=== PATIENT | female | born 1985 | race African-American/Black ===

== ENCOUNTER 2016-09-30 14:46 | Emergency (ER) | payer MEDICAID ==
[~2016-09-30] VITALS: Ht 167.6 cm; Wt 65.9 kg
[2016-09-30 14:48] VITALS: BP 130/92; PULSE 105; RESP 18; TEMP 97.8; O2SAT 100
== END 2016-09-30 16:30 | disposition left against medical advice (07) ==
LOC: NED 14:46
DX: Z53.21 Procedure and treatment not carried out due to patient leaving prior to being seen by health care provider (principal)
CPT/HCPCS: 99281

== ENCOUNTER 2016-12-24 14:56 | Emergency (ER) | payer MEDICAID, OTHER ==
[~2016-12-24] VITALS: Ht 167.6 cm; Wt 60.0 kg
[2016-12-24 15:10] VITALS: BP 149/99; PULSE 98; RESP 16; TEMP 98; O2SAT 98
--- NOTE | 2016-12-24 15:26 | PD ---
HPI Chief Complaint: Psychiatric Symptoms Time Seen by Provider: 15:24 Travel History International Travel<30 days: No Contact w/Intl Traveler<30days: No Traveled to known affect area: No History of Present Illness HPI Patient comes in under Robb act by police for allegedly making suicidal statements. Patient denies any suicidal or homicidal ideation. Patient denies any medical concerns at this time. Denies any chest pain, shortness of breath, fevers, abdominal pain, nausea, vomiting, or urinary symptoms. PFSH Past Medical History Anemia: Yes Arthritis: No Asthma: No Autoimmune Disease: No Blood Disorders: No Anxiety: Yes Depression: Yes Heart Rhythm Problems: No Cancer: No Cardiovascular Problems: No High Cholesterol: No Chemotherapy: No Chest Pain: No Congestive Heart Failure: No COPD: No Diabetes: No Diminished Hearing: No Endocrine: No GERD: No Glaucoma: No Genitourinary: No Hepatitis: No Hiatal Hernia: No Hypertension: No Kidney Stones: No Musculoskeletal: No Neurologic: No Respiratory: No Immunizations Current: Yes Myocardial Infarction: No Radiation Therapy: No Renal Failure: No Sickle Cell Disease: No Sleep Apnea: No Thyroid Disease: Yes (PT STATES " THINK HYPO") Ulcer: No ?: Not LMP: LAST WEEK : 3 Para: 1 Miscarriage: 0 : 2 Ovarian Cysts: Yes Past Surgical History AICD: No Appendectomy: Yes Gynecologic Surgery: Yes (RIGHT OOPHRECTOMY) Hysterectomy: Yes (Partial; RIGHT OVARY REMOVED) Pacemaker: No Tonsillectomy: Yes Other Surgery: No Social History Alcohol Use: No Tobacco Use: Yes (11/09 PPD) Substance Use: No (DENIES ) Allergies-Medications (Allergen,Severity, Reaction): Coded Allergies: Citric Acid (Verified Allergy, Severe, TONGUE IRRITATION, 12/24/16) Penicillin (Verified Allergy, Severe, Hives, 12/24/16) Morphine (Verified Allergy, Mild, ITCHES, 12/24/16) Demerol (Verified Adverse Reaction, Mild, STS DOES NOT WORK, 12/24/16) Reported Meds & Prescriptions Reported Meds & Active Scripts Active No Active Prescriptions or Reported Medications Review of Systems Except as stated in HPI: all other systems reviewed are Neg Physical Exam Narrative GENERAL: Well-developed, well nourished, in no acute distress, and non-ill appearing. Tearful on exam. SKIN: Focused skin assessment warm and dry. HEAD: Atraumatic. Normocephalic. EYES: Pupils equal and round. EOMI. No scleral icterus. No injection or drainage. ENT: No nasal bleeding or discharge. Mucous membranes pink and moist. NECK: Trachea midline. Supple. No nuclear rigidity. CARDIOVASCULAR: Regular rate and rhythm. No murmur appreciated. RESPIRATORY: No accessory muscle use. No respiratory distress. Clear to auscultation. Breath sounds equal bilaterally. MUSCULOSKELETAL: No obvious deformities. No clubbing. No cyanosis. No edema. Full range of motion. NEUROLOGICAL: Awake and alert. No obvious cranial nerve deficits. Motor grossly within normal limits. Normal speech. PSYCHIATRIC: Appropriate mood and affect; insight and judgment normal. Data Data Last Documented VS Vital Signs Date Time Temp Pulse Resp B/P Pulse Ox O2 Delivery O2 Flow Rate FiO2 12/24/16 17:19 97.8 78 18 92/54 98 Room Air Orders Complete Blood Count With Diff (12/24/16 15:23) Comprehensive Metabolic Panel (12/24/16 15:23) Ed Urine Pregnancytest Poc (12/24/16 15:23) Psych Screen (12/24/16 15:23) Drug Screen, Random Urine (12/24/16 15:23) Alcohol (Ethanol) (12/24/16 15:23) Salicylates (Aspirin) (12/24/16 15:23) Tylenol (Acetaminophen) (12/24/16 15:23) Diet Regular Basic (12/24/16 Dinner) Labs Laboratory Tests Test 12/24/16 12/24/16 15:35 16:12 Urine Opiates Screen POS Urine Barbiturates Screen NEG Urine Amphetamines Screen NEG Urine Benzodiazepines Screen NEG Urine Cocaine Screen POS Urine Cannabinoids Screen POS White Blood Count 10.3 TH/MM3 Red Blood Count 4.95 MIL/MM3 Hemoglobin 12.7 GM/DL Hematocrit 38.3 % Mean Corpuscular Volume 77.5 FL Mean Corpuscular Hemoglobin 25.6 PG Mean Corpuscular Hemoglobin 33.0 % Concent Red Cell Distribution Width 15.7 % Platelet Count 339 TH/MM3 Mean Platelet Volume 7.5 FL Neutrophils (%) (Auto) 64.5 % Lymphocytes (%) (Auto) 26.2 % Monocytes (%) (Auto) 6.0 % Eosinophils (%) (Auto) 2.1 % Basophils (%) (Auto) 1.2 % Neutrophils # (Auto) 6.6 TH/MM3 Lymphocytes # (Auto) 2.7 TH/MM3 Monocytes # (Auto) 0.6 TH/MM3 Eosinophils # (Auto) 0.2 TH/MM3 Basophils # (Auto) 0.1 TH/MM3 CBC Comment DIFF FINAL Differential Comment Sodium Level 142 MEQ/L Potassium Level 3.9 MEQ/L Chloride Level 108 MEQ/L Carbon Dioxide Level 28.1 MEQ/L Anion Gap 6 MEQ/L Blood Urea Nitrogen 10 MG/DL Creatinine 0.91 MG/DL Estimat Glomerular Filtration 86 ML/MIN Rate Random Glucose 56 MG/DL Calcium Level 9.2 MG/DL Total Bilirubin 0.2 MG/DL Aspartate Amino Transf 15 U/L (AST/SGOT) Alanine Aminotransferase 16 U/L (ALT/SGPT) Alkaline Phosphatase 76 U/L Total Protein 8.2 GM/DL Albumin 3.8 GM/DL Salicylates Level 4.0 MG/DL Acetaminophen Level LESS THAN 2.0 MCG/ML Ethyl Alcohol Level LESS THAN 3 MG/DL MDM Medical Decision Making Medical Screen Exam Complete: Yes Emergency Medical Condition: Yes Differential Diagnosis Homicidal, suicidal, electrolyte abnormality, other Narrative Course Patient was seen and examined. Labs were obtained and reviewed. Patient medically cleared for further treatment and evaluation by psych. Final disposition per psych. Diagnosis Primary Impression: Medical clearance for psychiatric admission Scripts No Active Prescriptions or Reported Meds Condition: Stable Rony Stephenson Dec 24, 2016 15:26
[2016-12-24 16:07] LABS: AMPHETAMINE, URINE NEG (NEG); BARBITURATES, URINE NEG (NEG); COCAINE, URINE POS (NEG)
[2016-12-24 16:56] LABS: AUTOMATED NEUTROPHIL # 6.6 TH/MM3 (1.8-7.7); BASOPHIL # 0.1 TH/MM3 (0-0.2); BASOPHIL % 1.2 % (0.0-2.0); EOSINOPHIL # 0.2 TH/MM3 (0-0.4); EOSINOPHIL % 2.1 % (0.0-4.0); HEMATOCRIT 38.3 % (35.0-46.0); HEMO FLAGS DIFF FINAL; LYMPH % 26.2 % (9.0-44.0); LYMPHOCYTE # 2.7 TH/MM3 (1.0-4.8); MEAN CELL VOLUME 77.5 FL (80.0-100.0); MEAN CORPUSCULAR HEMOGLOBIN 25.6 PG (27.0-34.0); NEUT % 64.5 % (16.0-70.0); PLATELET COUNT 339 TH/MM3 (150-450); RED BLOOD COUNT 4.95 MIL/MM3 (4.00-5.30); RED CELL DISTRIBUTION WIDTH 15.7 % (11.6-17.2); WHITE BLOOD COUNT 10.3 TH/MM3 (4.0-11.0)
[2016-12-24 17:19] VITALS: BP 92/54; PULSE 78; RESP 18; TEMP 97.8; O2SAT 98
[2016-12-24 17:25] LABS: ALT (GPT) 16 U/L (10-53); ANION GAP 6 MEQ/L (5-15); AST (GOT) 15 U/L (15-37); BICARBONATE 28.1 MEQ/L (21.0-32.0); BLOOD UREA NITROGEN 10 MG/DL (7-18); CHLORIDE 108 MEQ/L (98-107); GLOMERULAR FILTRATION RATE 86 ML/MIN (>89); POTASSIUM 3.9 MEQ/L (3.5-5.1); SODIUM (NA) 142 MEQ/L (136-145)
[2016-12-24 17:27] LABS: ALKALINE PHOSPHATASE 76 U/L (45-117); TOTAL BILIRUBIN ADULT 0.2 MG/DL (0.2-1.0)
[2016-12-24 17:28] LABS: ACETAMINOPHEN LESS THAN 2.0 MCG/ML (10.0-30.0)
[2016-12-24 23:10] VITALS: BP 136/64; PULSE 77; RESP 17; O2SAT 96
[2016-12-25 02:00] VITALS: BP 102/58; PULSE 80; RESP 17; O2SAT 99
[2016-12-25 06:47] VITALS: BP 113/67; PULSE 79; RESP 17; O2SAT 97
--- NOTE | 2016-12-25 10:21 | PD ---
History of Present Illness Chief Complaint: Psychiatric Symptoms Time Seen by Provider: 09:55 Travel History International Travel<30 Days: No Contact w/Intl Traveler<30days: No Known affected area: No Legal Status Legal Status: Robb Act Robb Act Signed By: William Caldwell Robb Act Comment: BA signed by:VASYL MCCLAIN Badge#[id number], Case#[id number] History of Present Illness: History of Present Illness HPI Patient is a 31 year old female with no reported history of psychiatric illness who comes in under Robb act initiated by by police. As per the report she made suicidal statements and she stated that she was on medication fro mental illness". As per Ed documentation included in this report " Patient denies any suicidal or homicidal ideation." Patient was monitored here in J pod and she presented no behavioral concerns and no suicidality. EMR is reviewed. She was evaluated on January 2016 after she presented on a voluntary basis. She was referred to [facility] but did not follow up. Patient's current toxicology is positive for cocaine, cannabinoids as well as opiates w. She states that the opiates are prescribed for pain management of migraines. She admits to having smoked marijuana that she believes was possibly laced with cocaine . Patient denies any medical concerns at this time. Denies any chest pain, shortness of breath, fevers, abdominal pain, nausea, vomiting, or urinary symptoms. Patient is seen in J pod. Awake, alert, oriented and engaging. Speech is clear and logical. There is no indication that she is experiencing any hallucinations , no delusions and no paranoia. The patient at this time denies any significant symptom of depression or anxiety and states that she has not had treatment in several years. She is prescribed Trazodone by her pain management for sleep. She denies any social ideation, intent or plan. The Patient reports that she was involved in an argument with her mother over not having food in the home. She goes on to say that she told her mother " I won't be around much longer to burden you" because she is planning on moving out of her mother's house and in with a friend. She tells me that she is planning to move w with her son to a friend's house as she has frequent arguments with her mother. PFSH Past Medical History Anemia: Yes Arthritis: No Asthma: No Autoimmune Disease: No Blood Disorders: No Anxiety: Yes Depression: Yes Heart Rhythm Problems: No Cancer: No Cardiovascular Problems: No High Cholesterol: No Chemotherapy: No Chest Pain: No Congestive Heart Failure: No COPD: No Diabetes: No Diminished Hearing: No Endocrine: No GERD: No Glaucoma: No Genitourinary: No Hepatitis: No Hiatal Hernia: No Hypertension: No Kidney Stones: No Musculoskeletal: No Neurologic: No Respiratory: No Immunizations Current: Yes Myocardial Infarction: No Radiation Therapy: No Renal Failure: No Sickle Cell Disease: No Sleep Apnea: No Thyroid Disease: Yes (PT STATES " THINK HYPO") Ulcer: No ?: Not LMP: LAST WEEK : 3 Para: 1 Miscarriage: 0 : 2 Ovarian Cysts: Yes Past Surgical History AICD: No Appendectomy: Yes Gynecologic Surgery: Yes (RIGHT OOPHRECTOMY) Hysterectomy: Yes (Partial; RIGHT OVARY REMOVED) Pacemaker: No Tonsillectomy: Yes Other Surgery: No Psychiatric History Psychiatric History Hx Psychiatric Treatment: Presented to [facility] volutarily in 2016, denies prior hx. Was followed at [facility] for a brief time 5 years ago. History of Inpatient Treatment: No Guns or firearms in home: No Social History Single , mother of a 9 year old. Lives with her mother and her child. Unemployed at this time. 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 Hx Alcohol Use: No Hx Tobacco Use: Yes (3/4 PPD) Hx Substance Use: No (Marijauna, Diladid and Crack) Substance Use Type: Crack, Marijuana, Synth Opiates-Pain Pills Other Substances Used: PT DENIES PSA. PER LAST SCREENING THERE IS A HISTORY OF PSA Hx of Substance Use Treatment: No Family Psychiatric History None reported Allergies-Medications (Allergen,Severity, Reaction): Coded Allergies: Citric Acid (Verified Allergy, Severe, TONGUE IRRITATION, 12/24/16) Penicillin (Verified Allergy, Severe, Hives, 12/24/16) Morphine (Verified Allergy, Mild, ITCHES, 12/24/16) Demerol (Verified Adverse Reaction, Mild, STS DOES NOT WORK, 12/24/16) Reported Meds & Prescriptions Reported Meds & Active Scripts Active No Active Prescriptions or Reported Medications Review of Systems Constitutional: DENIES: Diaphoretic episodes, Fatigue, Fever, Weight gain, Weight loss, Chills, Dizziness, Change in appetite, Night Sweats Endocrine: DENIES: Abnorml menstrual pattern, Heat/cold intolerance, Polydipsia , Polyuria, Polyphagia Eyes: DENIES: Blurred vision, Diplopia, Eye inflammation, Eye pain, Vision loss , Photosensitivity, Double Vision Ears, nose, mouth, throat: DENIES: Tinnitus, Hearing loss, Vertigo, Nasal discharge, Oral lesions, Throat pain, Hoarseness, Ear Pain, Running Nose, Epistaxis, Sinus Pain, Toothache, Odynophagia Respiratory: DENIES: Apneas, Cough, Snoring, Wheezing, Hemoptysis, Sputum production, Shortness of breath Cardiovascular: DENIES: Chest pain, Palpitations, Syncope, Dyspnea on Exertion , PND, Lower Extremity Edema, Orthopnea, Claudication Gastrointestinal: DENIES: Abdominal pain, Black stools, Bloody stools, Constipation, Diarrhea, Nausea, Vomiting, Difficulty Swallowing, Anorexia Genitourinary: DENIES: Abnormal vaginal bleeding, Dysmenorrhea, Dyspareunia, Sexual dysfunction, Urinary frequency, Urinary incontinence, Urgency, Hematuria , Dysuria, Nocturia, Vaginal discharge Musculoskeletal: DENIES: Joint pain, Muscle aches, Stiffness, Joint Swelling, Back pain, Neck pain Integumentary: DENIES: Abnormal pigmentation, Pruritus, Rash, Nail changes, Breast masses, Breast skin changes, Nipple discharge Hematologic/lymphatic: DENIES: Bruising, Lymphadenopathy Neurologic: COMPLAINS OF: Headache (hx of migraines) Psychiatric: DENIES: Anxiety, Confusion, Mood changes, Depression, Hallucinations, Agitation, Suicidal Ideation, Homicidal Ideation, Delusions Exam Alert: Yes [place]: Person (ox4) Mood: Calm Affect: Appropriate Speech: Clear, Logical Eye Contact: Normal Memory Intact: Comment (not impaired) Hallucinations: Other (deneis any) Delusions: No Suicidal: Ideation (denies any) Homicidal: Ideation (denies any) Insight/Judgement Poor. Not impaired. MDM Medical Decision Making Medical Record Reviewed: Yes Assessment/Plan 31 year old female under a BA after she allegedly made suicidal ideation in context of having an argument with her mother. Patient also under the influence of several substances at the time of the BA. The patient has been monitored here in J pod and has presented no behavioral concerns and no suicidality. She at this time is future oriented and does not present any criteria to retain her under the BA. She agrees to follow up with [facility]. She also has plans to move out of her mother's house and with a friend. Orders Complete Blood Count With Diff (12/24/16 15:23) Comprehensive Metabolic Panel (12/24/16 15:23) Ed Urine Pregnancytest Poc (12/24/16 15:23) Psych Screen (12/24/16 15:23) Drug Screen, Random Urine (12/24/16 15:23) Alcohol (Ethanol) (12/24/16 15:23) Salicylates (Aspirin) (12/24/16 15:23) Tylenol (Acetaminophen) (12/24/16 15:23) Diet Regular Basic (12/24/16 Dinner) Diet Regular Basic (12/25/16 Breakfast) Diet Regular Basic (12/25/16 Lunch) Results Vital Signs Date Time Temp Pulse Resp B/P Pulse Ox O2 Delivery O2 Flow Rate FiO2 12/25/16 06:47 79 17 113/67 97 Room Air 12/25/16 02:00 80 17 102/58 99 Room Air 12/24/16 23:10 77 17 136/64 96 Room Air 12/24/16 17:19 97.8 78 18 92/54 98 Room Air 12/24/16 15:10 98.0 98 16 149/99 98 Laboratory Tests Test 12/24/16 12/24/16 15:35 16:12 Urine Opiates Screen POS Urine Barbiturates Screen NEG Urine Amphetamines Screen NEG Urine Benzodiazepines Screen NEG Urine Cocaine Screen POS Urine Cannabinoids Screen POS White Blood Count 10.3 Red Blood Count 4.95 Hemoglobin 12.7 Hematocrit 38.3 Mean Corpuscular Volume 77.5 Mean Corpuscular Hemoglobin 25.6 Mean Corpuscular Hemoglobin 33.0 Concent Red Cell Distribution Width 15.7 Platelet Count 339 Mean Platelet Volume 7.5 Neutrophils (%) (Auto) 64.5 Lymphocytes (%) (Auto) 26.2 Monocytes (%) (Auto) 6.0 Eosinophils (%) (Auto) 2.1 Basophils (%) (Auto) 1.2 Neutrophils # (Auto) 6.6 Lymphocytes # (Auto) 2.7 Monocytes # (Auto) 0.6 Eosinophils # (Auto) 0.2 Basophils # (Auto) 0.1 CBC Comment DIFF FINAL Differential Comment Sodium Level 142 Potassium Level 3.9 Chloride Level 108 Carbon Dioxide Level 28.1 Anion Gap 6 Blood Urea Nitrogen 10 Creatinine 0.91 Estimat Glomerular Filtration 86 Rate Random Glucose 56 Calcium Level 9.2 Total Bilirubin 0.2 Aspartate Amino Transf 15 (AST/SGOT) Alanine Aminotransferase 16 (ALT/SGPT) Alkaline Phosphatase 76 Total Protein 8.2 Albumin 3.8 Salicylates Level 4.0 Acetaminophen Level LESS THAN 2.0 Ethyl Alcohol Level LESS THAN 3 Diagnosis Primary Impression: Substance induced mood disorder Additional Impression: Substance use disorder Med/ Other Pt Specific Info: No Change to Meds, No Meds Exist/No RX given Prescriptions No Active Prescriptions or Reported Meds Disposition: 01 DISCHARGE HOME Condition: Stable Problem Qualifiers Barbie Dudley Dec 25, 2016 10:21
[2016-12-25 10:24] VITALS: BP 113/83; PULSE 80; RESP 18; O2SAT 97
[2016-12-26] MEDS ORDERED: PERI0.126 SWISH-SPIT (16:49)
[2016-12-26] MEDS ORDERED: CLIN1CAP5 PO (16:49)
== END 2016-12-25 11:29 | disposition home or self-care (01) ==
LOC: NEDAMB 14:56 → NEPJ 12-25 11:29
DX: F19.94 Other psychoactive substance use, unspecified with psychoactive substance-induced mood disorder (principal); E07.9 Disorder of thyroid, unspecified; F17.200 Nicotine dependence, unspecified, uncomplicated; Z02.89 Encounter for other administrative examinations; Z86.2 Personal history of diseases of the blood and blood-forming organs and certain disorders involving the immune mechanism; Z86.59 Personal history of other mental and behavioral disorders
CPT/HCPCS: 80053; 80307; 84703; 85025; 99285

== ENCOUNTER 2016-12-26 16:12 | Emergency (ER) | payer MEDICAID, OTHER ==
[~2016-12-26] VITALS: Ht 167.6 cm; Wt 55.0 kg
[2016-12-26 16:46] VITALS: BP 141/95; PULSE 104; RESP 16; TEMP 97.1; O2SAT 98
[2016-12-26] MEDS ORDERED: CLIN1CAP5 PO (16:49)
[2016-12-26] MEDS ORDERED: PERI0.126 SWISH-SPIT (16:49)
--- NOTE | 2016-12-26 16:49 | PD ---
HPI Chief Complaint: Oral / Dental Pain or Problem Time Seen by Provider: 16:46 Travel History International Travel<30 days: No Contact w/Intl Traveler<30days: No Traveled to known affect area: No History of Present Illness HPI 31-year-old female presents to emergency department for evaluation and medical clearance to return [facility]. Patient is an exparte for substance abuse. She has been having tooth pain and states she has a dental abscess. [facility] like her medically cleared prior to them accepting her back to their facility. Patient is very upset that she is having to be there anyway. She does not share with me much but states she does have a dental abscess involving her right lateral incisor. Denies fever or chills. States that it has been worsening for very long time. Denies any other symptoms at this time. PFSH Past Medical History Anemia: Yes Arthritis: No Asthma: No Autoimmune Disease: No Blood Disorders: No Anxiety: Yes Depression: Yes Heart Rhythm Problems: No Cancer: No Cardiovascular Problems: No High Cholesterol: No Chemotherapy: No Chest Pain: No Congestive Heart Failure: No COPD: No Diabetes: No Diminished Hearing: No Endocrine: No GERD: No Glaucoma: No Genitourinary: No Hepatitis: No Hiatal Hernia: No Hypertension: No Kidney Stones: No Musculoskeletal: No Neurologic: No Respiratory: No Immunizations Current: Yes Myocardial Infarction: No Radiation Therapy: No Renal Failure: No Sickle Cell Disease: No Sleep Apnea: No Thyroid Disease: Yes (PT STATES " THINK HYPO") Ulcer: No : 3 Para: 1 Miscarriage: 0 : 2 Ovarian Cysts: Yes Past Surgical History AICD: No Appendectomy: Yes Gynecologic Surgery: Yes (RIGHT OOPHRECTOMY) Hysterectomy: Yes (Partial; RIGHT OVARY REMOVED) Pacemaker: No Tonsillectomy: Yes Other Surgery: No Social History Alcohol Use: No Tobacco Use: Yes (11/09 PPD) Substance Use: No (Marijauna, Diladid and Crack) Allergies-Medications (Allergen,Severity, Reaction): Coded Allergies: Citric Acid (Verified Allergy, Severe, TONGUE IRRITATION, 12/24/16) Penicillin (Verified Allergy, Severe, Hives, 12/24/16) Morphine (Verified Allergy, Mild, ITCHES, 12/24/16) Demerol (Verified Adverse Reaction, Mild, STS DOES NOT WORK, 4/18/17) Reported Meds & Prescriptions Reported Meds & Active Scripts Active Peridex Liq (Chlorhexidine Gluconate (Mouth) Liq) 0.12% Soln 15 Ml SWISH-SPIT BID 14 Days Clindamycin (Clindamycin HCl) 150 Mg Cap 300 Mg PO Q6H 10 Days Review of Systems Except as stated in HPI: all other systems reviewed are Neg Physical Exam Narrative GENERAL: Well-nourished female patient, tearful, easily agitated, but in no acute distress SKIN: Focused skin assessment warm/dry. HEAD: Atraumatic. Normocephalic. No erythema or edema. EYES: Pupils equal and round. No scleral icterus. No injection or drainage. ENT: No nasal bleeding or discharge. Mucous membranes pink and moist. DENTAL: Generalized poor dentition. The right maxillary lateral incisor and the right maxillary first bicuspid arc decayed completely down to the gingiva. There is significant gingival erythema with no appreciable abscess. There is no fluctuance. There is no drainage identified. No malocclusion. NECK: Trachea midline. No JVD. No lymphadenopathy identified. CARDIOVASCULAR: Elevated rate and rhythm. No murmur appreciated. RESPIRATORY: No accessory muscle use. Clear to auscultation. Breath sounds equal bilaterally. GASTROINTESTINAL: Abdomen soft, non-tender, nondistended. Hepatic and splenic margins not palpable. MUSCULOSKELETAL: No obvious deformities. No clubbing. No cyanosis. No edema. Data Data Last Documented VS Vital Signs Date Time Temp Pulse Resp B/P Pulse Ox O2 Delivery O2 Flow Rate FiO2 12/26/16 16:46 97.1 104 16 141/95 98 Orders Clindamycin (Cleocin) (12/26/16 17:00) Ibuprofen (Motrin) (12/26/16 17:00) [facility] Medical Decision Making Medical Screen Exam Complete: Yes Emergency Medical Condition: Yes Medical Record Reviewed: Yes Differential Diagnosis Dental Jessy versus dental abscess versus gingivitis versus pulpitis versus periodontal disease Narrative Course 31-year-old female presents to emergency department for medical clearance of a possible dental abscess to return to [facility]. Patient does have poor dentition and significantly decayed teeth in the area of her pain. She'll be started on clindamycin and she is allergic to penicillin and also be prescribed Peridex oral rinse. She is encouraged to seek dental evaluation as soon as possible. She agrees to return immediately with any acute worsening of symptoms. Diagnosis Primary Impression: Dental caries extending into pulp Additional Impressions: Gingivitis Medical clearance for psychiatric admission Substance use disorder Referrals: [facility] Patient Instructions: Dental Caries (ED), General Instructions Additional Instructions: Seek dental evaluation as soon as possible Take antibiotics until they are gone Ibuprofen as directed on the package as needed for pain Return immediately with any acute worsening of symptoms Med/Other Pt SpecificInfo: Prescription(s) given Scripts Chlorhexidine Gluconate (Mouth) Liq (Peridex Liq)0.12% Soln15 Ml SWISH-SPIT BID 14 Days Ref 0 Prov:Leticia Butterfield 12/26/16 Clindamycin 150 Mg [id number] Mg PO Q6H 10 Days Ref 0 Prov:Leticia Butterfield 12/26/16 Disposition: 01 DISCHARGE HOME Condition: Stable Leticia Butterfield Dec 26, 2016 16:49
[2016-12-26] MEDS ORDERED: CLINDAMYCIN 150 MG CAP PO ONE (17:00)
[2016-12-26] MEDS ORDERED: IBUPROFEN 600 MG TAB PO ONE (17:00)
== END 2016-12-26 17:22 | disposition home or self-care (01) ==
LOC: NEDAMB 16:12
DX: K02.9 Dental caries, unspecified (principal); K05.10 Chronic gingivitis, plaque induced; F19.10 Other psychoactive substance abuse, uncomplicated; F17.210 Nicotine dependence, cigarettes, uncomplicated
CPT/HCPCS: 99282

== ENCOUNTER 2017-01-23 04:26 | Emergency (ER) | payer MEDICAID, OTHER ==
[~2017-01-23 04:26] MED LIST: CLIN1CAP5 PO; PERI0.126 SWISH-SPIT
[2017-01-23 04:34] VITALS: BP 101/61; PULSE 82; RESP 16
--- NOTE | 2017-01-23 05:10 | PD ---
HPI Chief Complaint: Pain: Acute or Chronic Time Seen by Provider: 05:07 Travel History International Travel<30 days: No Contact w/Intl Traveler<30days: No Traveled to known affect area: No History of Present Illness HPI 31-year-old female with history of opiate dependency, currently under court ordered detox, presents to emergency department from [facility] for evaluation of arm and back pain and dental pain. Prior to arrival, patient had received 2 doses of Ativan, clonidine, and Benadryl. She is resting comfortably in the bed with her eyes closed. She is arousable. She is oriented 3. She is not mentioning any pain at this time. PFSH Past Medical History Anemia: Yes Arthritis: No Asthma: No Autoimmune Disease: No Blood Disorders: No Anxiety: Yes Depression: Yes Heart Rhythm Problems: No Cancer: No Cardiovascular Problems: No High Cholesterol: No Chemotherapy: No Chest Pain: No Congestive Heart Failure: No COPD: No Diabetes: No Diminished Hearing: No Endocrine: No GERD: No Glaucoma: No Genitourinary: No Hepatitis: No Hiatal Hernia: No Hypertension: No Kidney Stones: No Musculoskeletal: No Neurologic: No Respiratory: No Immunizations Current: Yes Myocardial Infarction: No Radiation Therapy: No Renal Failure: No Sickle Cell Disease: No Sleep Apnea: No Thyroid Disease: Yes (PT STATES " THINK HYPO") Ulcer: No ?: Unknown : 3 Para: 1 Miscarriage: 0 : 2 Ovarian Cysts: Yes Past Surgical History AICD: No Appendectomy: Yes Gynecologic Surgery: Yes (RIGHT OOPHRECTOMY) Hysterectomy: Yes (Partial; RIGHT OVARY REMOVED) Pacemaker: No Tonsillectomy: Yes Other Surgery: No Social History Alcohol Use: No Tobacco Use: Yes (3/4 PPD) Substance Use: Yes (Marijauna, Diladid and Crack) Allergies-Medications (Allergen,Severity, Reaction): Coded Allergies: Citric Acid (Verified Allergy, Severe, TONGUE IRRITATION, 01/23/17) Penicillin (Verified Allergy, Severe, Hives, 01/23/17) Morphine (Verified Allergy, Mild, ITCHES, 01/23/17) Demerol (Verified Adverse Reaction, Mild, STS DOES NOT WORK, 01/23/17) Reported Meds & Prescriptions Reported Meds & Active Scripts Active Peridex Liq (Chlorhexidine Gluconate (Mouth) Liq) 0.12% Soln 15 Ml SWISH-SPIT BID 14 Days Clindamycin (Clindamycin HCl) 150 Mg Cap 300 Mg PO Q6H 10 Days Review of Systems Except as stated in HPI: all other systems reviewed are Neg Physical Exam Narrative GENERAL: Well-nourished female patient, in no acute distress. Patient is resting comfortably in the bed with her eyes closed. She is arousable, however she grinds or moans and turns back over to go to sleep after answering simple questions. Patient has recently been medicated for detox symptoms at [facility]. SKIN: Focused skin assessment warm/dry. HEAD: Atraumatic. Normocephalic. EYES: Pupils equal and round. No scleral icterus. No injection or drainage. ENT: No nasal bleeding or discharge. Mucous membranes pink and moist. NECK: Trachea midline. No JVD. CARDIOVASCULAR: Regular rate and rhythm. No murmur appreciated. RESPIRATORY: No accessory muscle use. Clear to auscultation. Breath sounds equal bilaterally. GASTROINTESTINAL: Abdomen soft, non-tender, nondistended. Hepatic and splenic margins not palpable. MUSCULOSKELETAL: No obvious deformities. No clubbing. No cyanosis. No edema. NEUROLOGICAL: Awake and alert. No obvious cranial nerve deficits. Motor grossly within normal limits. Normal speech. Data Data Last Documented VS Vital Signs Date Time Temp Pulse Resp B/P Pulse Ox O2 Delivery O2 Flow Rate FiO2 01/23/17 04:34 82 16 101/61 [facility] Medical Decision Making Medical Screen Exam Complete: Yes Emergency Medical Condition: Yes Medical Record Reviewed: Yes Differential Diagnosis Normal examination versus narcotic seeking versus muscle pain versus spasm Narrative Course 31 year-old female presents to the emergency department for evaluation of arm, neck, and mouth pain. Patient was recently medicated at the [facility] facility for her detox symptoms. She is resting comfortably with her eyes closed. She is arousable. Patient is not reporting any pain at this time. Patient is medically cleared to return to [facility]. If her pains return , I recommended Tylenol and/or ibuprofen. The catheter member with her agrees to return immediately for any acute worsening symptoms. Patient ambulates out of our facility into the [facility] vehicle for transfer back. Diagnosis Primary Impression: History of substance abuse Additional Impression: Medical clearance for psychiatric admission Referrals: [facility] (Out patient) [facility] Patient Instructions: General Instructions, Medical Clearance for Substance Abuse Treatment (ED) Additional Instructions: Tylenol and/or ibuprofen as directed on the package as needed for pain Follow-up with the primary care provider Return immediately with any acute worsening of symptoms Med/Other Pt SpecificInfo: No Change to Meds Disposition: 70 TRANSFER TO OTHER FACILITY Condition: Stable Lteicia Butterfield January 23, 2017 05:10
== END 2017-01-23 05:32 | disposition short-term general hospital (02) ==
LOC: NEPD 04:26
DX: Z02.89 Encounter for other administrative examinations (principal); E07.9 Disorder of thyroid, unspecified; F17.200 Nicotine dependence, unspecified, uncomplicated; Z87.898 Personal history of other specified conditions; Z86.2 Personal history of diseases of the blood and blood-forming organs and certain disorders involving the immune mechanism; Z86.59 Personal history of other mental and behavioral disorders
CPT/HCPCS: 99283

== ENCOUNTER 2017-03-24 15:00 | Emergency (ER) | payer MEDICAID ==
[~2017-03-24] VITALS: Ht 167.6 cm; Wt 62.0 kg
[2017-03-24 15:02] VITALS: BP 124/75; PULSE 98; RESP 16; TEMP 98.4; O2SAT 98
[2017-03-24 15:57] VITALS: BP 115/82; PULSE 85; RESP 16; O2SAT 100
[2017-03-24 16:23] LABS: BASOPHIL # 0.1 TH/MM3 (0-0.2); EOSINOPHIL # 0.2 TH/MM3 (0-0.4); EOSINOPHIL % 1.8 % (0.0-4.0); HEMATOCRIT 36.8 % (35.0-46.0); HEMO FLAGS DIFF FINAL; LYMPH % 30.7 % (9.0-44.0); LYMPHOCYTE # 2.6 TH/MM3 (1.0-4.8); MEAN CELL VOLUME 79.4 FL (80.0-100.0); MEAN CORPUSCULAR HEMOGLOBIN 25.4 PG (27.0-34.0); MONO % 6.3 % (0.0-8.0); NEUT % 60.2 % (16.0-70.0); PLATELET COUNT 314 TH/MM3 (150-450); RED BLOOD COUNT 4.64 MIL/MM3 (4.00-5.30); RED CELL DISTRIBUTION WIDTH 14.5 % (11.6-17.2); WHITE BLOOD COUNT 8.3 TH/MM3 (4.0-11.0)
[2017-03-24 16:48] LABS: BICARBONATE 26.7 MEQ/L (21.0-32.0); POTASSIUM 3.9 MEQ/L (3.5-5.1)
--- NOTE | 2017-03-24 16:58 | PD ---
HPI Chief Complaint: Syncope/Near-Syncope Time Seen by Provider: 16:53 Travel History International Travel<30 days: No Contact w/Intl Traveler<30days: No Traveled to known affect area: No History of Present Illness HPI 31 -year-old female that presents to the ED for evaluation of presyncope. Per patient she had an episode of almost syncope where she states that she almost fainted when she was at work. Per patient she felt lightheaded. She did not completely lost consciousness. Per patient she's had this before and this was attributed to low blood sugar. Per patient she checks her sugar regularly at home. The patient is not the first time that this happened. 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 She denies any head injury. She denies any pain. She denies any fevers chills or sweats. No chest pain or shortness of breath. Allergies to multiple medications. Denies any drug abuse. No alcohol. She had this time is completely asymptomatic. PFSH Past Medical History Anemia: Yes Arthritis: No Asthma: No Autoimmune Disease: No Blood Disorders: No Anxiety: Yes Depression: Yes Heart Rhythm Problems: No Cancer: No Cardiovascular Problems: No High Cholesterol: No Chemotherapy: No Chest Pain: No Congestive Heart Failure: No COPD: No Diabetes: No Diminished Hearing: No Endocrine: No GERD: No Glaucoma: No Genitourinary: No Hepatitis: No Hiatal Hernia: No Hypertension: No Kidney Stones: No Musculoskeletal: No Neurologic: No Respiratory: No Immunizations Current: Yes Myocardial Infarction: No Radiation Therapy: No Renal Failure: No Sickle Cell Disease: No Sleep Apnea: No Thyroid Disease: Yes (PT STATES " THINK HYPO") Ulcer: No ?: Not LMP: 3 WEEKS AGO : 3 Para: 1 Miscarriage: 0 : 2 Ovarian Cysts: Yes Past Surgical History AICD: No Appendectomy: Yes Gynecologic Surgery: Yes (RIGHT OOPHRECTOMY) Hysterectomy: Yes (Partial; RIGHT OVARY REMOVED) Pacemaker: No Tonsillectomy: Yes Other Surgery: No Social History Alcohol Use: No Tobacco Use: Yes (11/09 PPD) Substance Use: Yes (Marijauna, Diladid and Crack) Allergies-Medications (Allergen,Severity, Reaction): Coded Allergies: Citric Acid (Verified Allergy, Severe, TONGUE IRRITATION, 03/24/17) Penicillin (Verified Allergy, Severe, Hives, 03/24/17) Morphine (Verified Allergy, Mild, ITCHES, 03/24/17) Demerol (Verified Adverse Reaction, Mild, STS DOES NOT WORK, 03/24/17) Reported Meds & Prescriptions Reported Meds & Active Scripts Active No Active Prescriptions or Reported Medications Review of Systems Except as stated in HPI: all other systems reviewed are Neg Physical Exam Narrative GENERAL: SKIN: Warm and dry. HEAD: Atraumatic. Normocephalic. EYES: Pupils equal and round. No scleral icterus. No injection or drainage. ENT: No nasal bleeding or discharge. Mucous membranes pink and moist. Tongue is midline. No uvula deviation. NECK: Trachea midline. No JVD. CARDIOVASCULAR: Regular rate and rhythm. No murmurs, S3, S4. RESPIRATORY: No accessory muscle use. Clear to auscultation. Breath sounds equal bilaterally. GASTROINTESTINAL: Abdomen soft, non-tender, nondistended. Hepatic and splenic margins not palpable. MUSCULOSKELETAL: Extremities without clubbing, cyanosis, or edema. No obvious deformities. Full range of motion of the upper and lower extremities bilaterally. 2+ pulses bilaterally. NEUROLOGICAL: Awake and alert. No obvious cranial nerve deficits. Motor grossly within normal limits. Five out of 5 muscle strength in the arms and legs. Normal speech. PSYCHIATRIC: Appropriate mood and affect; insight and judgment normal. Data Data Last Documented VS Vital Signs Date Time Temp Pulse Resp B/P Pulse Ox O2 Delivery O2 Flow Rate FiO2 03/24/17 15:57 85 16 115/82 100 Room Air 03/24/17 15:02 98.4 Orders Complete Blood Count With Diff (03/24/17 16:01) Basic Metabolic Panel (Bmp) (03/24/17 16:01) Labs Laboratory Tests Test 03/24/17 16:10 White Blood Count 8.3 TH/MM3 Red Blood Count 4.64 MIL/MM3 Hemoglobin 11.8 GM/DL Hematocrit 36.8 % Mean Corpuscular Volume 79.4 FL Mean Corpuscular Hemoglobin 25.4 PG Mean Corpuscular Hemoglobin 32.0 % Concent Red Cell Distribution Width 14.5 % Platelet Count 314 TH/MM3 Mean Platelet Volume 7.0 FL Neutrophils (%) (Auto) 60.2 % Lymphocytes (%) (Auto) 30.7 % Monocytes (%) (Auto) 6.3 % Eosinophils (%) (Auto) 1.8 % Basophils (%) (Auto) 1.0 % Neutrophils # (Auto) 5.0 TH/MM3 Lymphocytes # (Auto) 2.6 TH/MM3 Monocytes # (Auto) 0.5 TH/MM3 Eosinophils # (Auto) 0.2 TH/MM3 Basophils # (Auto) 0.1 TH/MM3 CBC Comment DIFF FINAL Differential Comment Sodium Level 141 MEQ/L Potassium Level 3.9 MEQ/L Chloride Level 107 MEQ/L Carbon Dioxide Level 26.7 MEQ/L Anion Gap 7 MEQ/L Blood Urea Nitrogen 9 MG/DL Creatinine 0.82 MG/DL Estimat Glomerular Filtration 97 ML/MIN Rate Random Glucose 90 MG/DL Calcium Level 8.7 MG/DL MDM Medical Decision Making Medical Screen Exam Complete: Yes Emergency Medical Condition: Yes Medical Record Reviewed: Yes Differential Diagnosis Presyncope versus syncope versus normal exam versus hypoglycemia Narrative Course 31-year-old female that presents to the ED for evaluation of syncope. Patient was properly examined and was found to have signs and symptoms consistent appears to be or syncope. No sign of acute medical distress. Blood sugar here is normal. Patient's back to normal. This time recommend basic lab work to make sure patient is having anything acute. Lab work is completely unremarkable. Patient is completely is symptomatic now. Neurovascular intact. Patient here more for work clearance that she can go back to work. At this time I do not see any need for patient to not go to work. She was told to keep hydrated and keep sugary drinks close to her to prevent this episodes. Close follow with PCP. See ED worsening symptoms. Diagnosis Primary Impression: Pre-syncope Patient Instructions: General Instructions Departure Forms: Tests/Procedures, Work Release Special Instructions: Okay for patient to go back to work. Patient was examined on 03/24/17. She had a hypoglycemic episode which caused the syncope. Please allow the patient to have Candy or sugary drinks close to her to prevent this from happening. Additional Instructions: Drink plenty of fluids. Have candy with you or sugary drinks near you when at work to prevent this from happening. Follow-up with PCP. See ED worsening symptoms. Med/Other Pt SpecificInfo: No Change to Meds Scripts No Active Prescriptions or Reported Meds Disposition: 01 DISCHARGE HOME Condition: Stable Cm Berry 17, 2017 16:58
[2017-03-24 17:08] VITALS: BP 122/82
[2017-03-25] MEDS ORDERED: CEPH-460 PO (15:19)
== END 2017-03-24 17:24 | disposition home or self-care (01) ==
LOC: NEPC 15:00
DX: R55 Syncope and collapse (principal); R42 Dizziness and giddiness; E07.9 Disorder of thyroid, unspecified; F17.200 Nicotine dependence, unspecified, uncomplicated; Z86.2 Personal history of diseases of the blood and blood-forming organs and certain disorders involving the immune mechanism; Z86.59 Personal history of other mental and behavioral disorders
CPT/HCPCS: 80048; 85025; 99283

== ENCOUNTER 2017-03-25 11:57 | Emergency (ER) | payer MEDICAID ==
[~2017-03-25] VITALS: Ht 167.6 cm; Wt 62.0 kg
[2017-03-25 11:59] VITALS: BP 110/67; PULSE 103; RESP 16; TEMP 99.4; O2SAT 100
--- NOTE | 2017-03-25 13:28 | PD ---
HPI Chief Complaint: Cold / Flu Symptoms Time Seen by Provider: 13:27 Travel History International Travel<30 days: No Contact w/Intl Traveler<30days: No Traveled to known affect area: No History of Present Illness HPI 31-year-old female presents to emergency department for evaluation of flulike symptoms. Patient states she has felt fever and chilled. She has been nauseous without vomiting. She has had body aches. Denies any significant pain. Denies any headache visual disturbances. No nuchal rigidity. She has no other symptoms to report. PFSH Past Medical History Anemia: Yes Arthritis: No Asthma: No Autoimmune Disease: No Blood Disorders: No Anxiety: Yes Depression: Yes Heart Rhythm Problems: No Cancer: No Cardiovascular Problems: No High Cholesterol: No Chemotherapy: No Chest Pain: No Congestive Heart Failure: No COPD: No Diabetes: No Diminished Hearing: No Endocrine: No GERD: No Glaucoma: No Genitourinary: No Hepatitis: No Hiatal Hernia: No Hypertension: No Kidney Stones: No Musculoskeletal: No Neurologic: No Respiratory: No Immunizations Current: Yes Myocardial Infarction: No Radiation Therapy: No Renal Failure: No Sickle Cell Disease: No Sleep Apnea: No Thyroid Disease: Yes (PT STATES " THINK HYPO") Ulcer: No ?: Not LMP: 03/15/17 : 3 Para: 1 Miscarriage: 0 : 2 Ovarian Cysts: Yes Past Surgical History AICD: No Appendectomy: Yes Gynecologic Surgery: Yes (RIGHT OOPHRECTOMY) Hysterectomy: Yes (Partial; RIGHT OVARY REMOVED) Pacemaker: No Tonsillectomy: Yes Other Surgery: No Social History Alcohol Use: No Tobacco Use: Yes (3/4 PPD) Substance Use: Yes (Marijauna, Diladid and Crack) Allergies-Medications (Allergen,Severity, Reaction): Coded Allergies: Citric Acid (Verified Allergy, Severe, TONGUE IRRITATION, 03/24/17) Penicillin (Verified Allergy, Severe, Hives, 03/24/17) Morphine (Verified Allergy, Mild, ITCHES, 03/24/17) Demerol (Verified Adverse Reaction, Mild, STS DOES NOT WORK, 03/24/17) Reported Meds & Prescriptions Reported Meds & Active Scripts Active Keflex (Cephalexin) 500 Mg Cap 500 Mg PO Q12H 7 Days Review of Systems Except as stated in HPI: all other systems reviewed are Neg Physical Exam Narrative GENERAL: Well-nourished female patient in no acute distress SKIN: Focused skin assessment warm/dry. HEAD: Atraumatic. Normocephalic. EYES: Pupils equal and round. No scleral icterus. No injection or drainage. ENT: No nasal bleeding or discharge. Mucous membranes pink and moist. NECK: Trachea midline. No JVD. CARDIOVASCULAR: Elevated rate and rhythm. No murmur appreciated. RESPIRATORY: No accessory muscle use. Clear to auscultation. Breath sounds equal bilaterally. GASTROINTESTINAL: Abdomen soft, non-tender, nondistended. Hepatic and splenic margins not palpable. MUSCULOSKELETAL: No obvious deformities. No clubbing. No cyanosis. No edema. NEUROLOGICAL: Awake and alert. No obvious cranial nerve deficits. Motor grossly within normal limits. Normal speech. PSYCHIATRIC: Appropriate mood and affect; insight and judgment normal. Data Data Last Documented VS Vital Signs Date Time Temp Pulse Resp B/P Pulse Ox O2 Delivery O2 Flow Rate FiO2 03/25/17 16:05 100 03/25/17 14:10 Room Air 03/25/17 11:59 99.4 103 16 110/67 Orders Iv Access Insert/Monitor (03/25/17 13:47) Sodium Chlor 0.9% 1000 Ml Inj (Ns 1000 M (03/25/17 14:00) Influenzae A/B Antigen (03/25/17 13:47) Urinalysis - C+S If Indicated (03/25/17 13:47) Ed Urine Pregnancytest Poc (03/25/17 13:47) Urine Culture (03/25/17 14:10) Labs Laboratory Tests Test 03/25/17 14:10 Urine Color LIGHT-YELLOW Urine Turbidity HAZY Urine pH 6.5 Urine Specific [place] 1.005 Urine Protein NEG mg/dL Urine Glucose (UA) NEG mg/dL Urine Ketones NEG mg/dL Urine Occult Blood NEG Urine Nitrite NEG Urine Bilirubin NEG Urine Urobilinogen LESS THAN 2.0 MG/DL Urine Leukocyte Esterase LARGE Urine RBC 4 /hpf Urine WBC 27 /hpf Urine Squamous Epithelial 4 /hpf Cells Urine Bacteria RARE /hpf Urine Mucus FEW /lpf Microscopic Urinalysis Comment CULTURE INDICATED MDM Medical Decision Making Medical Screen Exam Complete: Yes Emergency Medical Condition: Yes Medical Record Reviewed: Yes Differential Diagnosis Influenza versus viral syndrome versus UTI Narrative Course Laboratory Tests Test 03/25/17 14:10 Urine Color LIGHT-YELLOW Urine Turbidity HAZY Urine pH 6.5 Urine Specific [place] 1.005 Urine Protein NEG mg/dL Urine Glucose (UA) NEG mg/dL Urine Ketones NEG mg/dL Urine Occult Blood NEG Urine Nitrite NEG Urine Bilirubin NEG Urine Urobilinogen LESS THAN 2.0 MG/DL Urine Leukocyte Esterase LARGE Urine RBC 4 /hpf Urine WBC 27 /hpf Urine Squamous Epithelial 4 /hpf Cells Urine Bacteria RARE /hpf Urine Mucus FEW /lpf Microscopic Urinalysis Comment CULTURE INDICATED Patient was given IV fluids. Her heart rate normalized. She'll be treated for UTI. She is encouraged to follow-up with primary care provider and return immediately with any acute worsening symptoms. Diagnosis Primary Impression: UTI (urinary tract infection) Qualified Code: N39.0 - Urinary tract infection with hematuria, site unspecified Referrals: Primary Care Physician Patient Instructions: General Instructions, Urinary Tract Infection in Women ( ED) Departure Forms: Tests/Procedures, Work Release Enter return to work date: Mar 27, 2017 Additional Instructions: Maintain adequate oral hydration Follow-up the primary care provider Return immediately with any acute worsening of symptoms Med/Other Pt SpecificInfo: Prescription(s) given Scripts Cephalexin (Keflex)500 Mg [id number] Mg PO Q12H 7 Days Ref 0 Prov:Leticia Butterfield 03/25/17 Disposition: 01 DISCHARGE HOME Condition: Stable Leticia Butterfield Mar 25, 2017 13:28
[2017-03-25] MEDS ORDERED: SODIUM CHLOR 0.9% 1000 ML INJ 1,000 ML IV ONE (14:00)
[2017-03-25 15:05] LABS: BACTERIA, URINE RARE /hpf; BLOOD, URINE NEG (NEG); COMMENT (UR) CULTURE INDICATED; CULTURE IF INDICATED CULTURE INDICATED; GLUCOSE,URINE NEG (NEG); KETONE, URINE NEG (NEG); MUCUS URINE FEW /lpf (OCC); NITRITE,URINE NEG (NEG); PH, URINE 6.5 (5.0-8.5); SQUAMOUS EPITHELIAL CELL URINE 4 /hpf (0-5); URINE COLOR LIGHT-YELLOW (YELLW/STRAW)
[2017-03-25] MEDS ORDERED: CEPH-460 PO (15:19)
== END 2017-03-25 16:05 | disposition home or self-care (01) ==
LOC: NEPD 11:57
DX: N39.0 Urinary tract infection, site not specified (principal); R11.0 Nausea; R52 Pain, unspecified; D64.9 Anemia, unspecified; F41.9 Anxiety disorder, unspecified; F32.9 Major depressive disorder, single episode, unspecified; F17.200 Nicotine dependence, unspecified, uncomplicated; Z79.899 Other long term (current) drug therapy; Z88.0 Allergy status to penicillin
CPT/HCPCS: 81001; 84703; 87086; 87804; 96360; 96361; 99284; J7030

== ENCOUNTER 2017-04-28 16:16 | Emergency (ER) | payer MEDICAID ==
[~2017-04-28 16:16] MED LIST changes: +CEPH-460 PO; -CLIN1CAP5 PO; -PERI0.126 SWISH-SPIT
[2017-04-28 16:18] VITALS: BP 118/83; PULSE 86; RESP 20; TEMP 97.6; O2SAT 100
== END 2017-04-28 18:39 | disposition left against medical advice (07) ==
LOC: NED 16:16
DX: R68.89 Other general symptoms and signs (principal)
CPT/HCPCS: 99281

== ENCOUNTER 2017-05-28 23:05 | Emergency (ER) | payer MEDICAID ==
[2017-05-28 23:06] VITALS: BP 125/74; PULSE 112; RESP 16; TEMP 98.5; O2SAT 100
[2017-05-28] MEDS ORDERED: SODIUM CHLOR 0.9% 1000 ML INJ 1,000 ML IV ONE (23:56)
[2017-05-29] MEDS ORDERED: KETOROLAC TROMETHAMINE 30 MG/ML (IVP) VIAL IVP ONE
[2017-05-29] MEDS ORDERED: ONDANSETRON HCL 4 MG/2 ML VIAL IV PUSH ONE
[2017-05-29] MEDS ORDERED: SODIUM CHLORIDE 0.9% FLUSH 10 ML FLUSH IVF PRN
--- NOTE | 2017-05-29 | PD ---
HPI Chief Complaint: Flank/Kidney Pain Time Seen by Provider: 23:56 Travel History International Travel<30 days: No Contact w/Intl Traveler<30days: No Traveled to known affect area: No History of Present Illness HPI 31-year-old female presents to the emergency department for complaint of sudden onset left flank pain radiating to the left lower quadrant since 11:00 this morning. Nausea without vomiting. No fever or chills. Patient has expands dysuria without hematuria. No prior history of kidney stones. Patient does have history of hypoglycemia and anemia. Patient takes no routine medications. Patient's had previous left ovary excision and tonsillectomy with denies other surgeries. Patient's had no cough congestion sore throat earache or pleuritic pain. Patient rates her pain 8-9/10 in intensity. Patient is unable to identify exacerbating or alleviating factors. PFSH Past Medical History Narrative Medical Anemia hyperglycemia tonsillectomy left oophorectomy tobacco use; nursing notes reviewed Anemia: Yes Arthritis: No Asthma: No Autoimmune Disease: No Blood Disorders: No Anxiety: Yes Depression: Yes Heart Rhythm Problems: No Cancer: No Cardiovascular Problems: No High Cholesterol: No Chemotherapy: No Chest Pain: No Congestive Heart Failure: No COPD: No Diabetes: No Diminished Hearing: No Endocrine: No GERD: No Glaucoma: No Genitourinary: No Hepatitis: No Hiatal Hernia: No Hypertension: No Kidney Stones: No Medical other: Yes (pelvic inflammatory disease) Musculoskeletal: No Neurologic: No Respiratory: No Immunizations Current: Yes Myocardial Infarction: No Radiation Therapy: No Renal Failure: No Sickle Cell Disease: No Sleep Apnea: No Thyroid Disease: Yes (PT STATES " THINK HYPO") Ulcer: No Tetanus Vaccination: Unknown Influenza Vaccination: No ?: Not LMP: now : 3 Para: 1 Miscarriage: 0 : 2 Ovarian Cysts: Yes Past Surgical History AICD: No Appendectomy: Yes Gynecologic Surgery: Yes (RIGHT OOPHRECTOMY) Hysterectomy: Yes Pacemaker: No Tonsillectomy: Yes Other Surgery: No Social History Alcohol Use: No Tobacco Use: No Substance Use: No Allergies-Medications (Allergen,Severity, Reaction): Coded Allergies: citric acid (Verified Allergy, Severe, TONGUE IRRITATION, 05/28/17) penicillin G (Verified Allergy, Severe, Hives, 05/28/17) morphine (Verified Allergy, Mild, ITCHES, 05/28/17) meperidine (Verified Adverse Reaction, Mild, STS DOES NOT WORK, 05/28/17) Reported Meds & Prescriptions Reported Meds & Active Scripts Active Review of Systems Except as stated in HPI: all other systems reviewed are Neg General / Constitutional: No: Fever, Chills HENT: No: Headaches, Congestion, Neck Pain Cardiovascular: No: Chest Pain or Discomfort Respiratory: No: Shortness of Breath, Wheezing, Hemoptysis, Pleuritic Pain Gastrointestinal: Positive: Nausea, Abdominal Pain, No: Vomiting, Diarrhea Genitourinary: Positive: Dysuria, Flank Pain, Vaginal Bleeding, No: Pelvic Pain Musculoskeletal: No: Myalgias, Arthralgias (menstruating) Skin: No Rash Neurologic: No: Weakness Psychiatric: No: Anxiety Endocrine: No: Heat Intolerance Hematologic/Lymphatic: No: Easy Bruising Physical Exam Narrative GENERAL: Well-developed well-nourished female in obvious discomfort no respiratory distress SKIN: Warm and dry. HEAD: Normocephalic. EYES: No scleral icterus. No injection or drainage. NECK: Supple, trachea midline. No JVD or lymphadenopathy. CARDIOVASCULAR: Regular rate and rhythm without murmurs, gallops, or rubs. RESPIRATORY: Breath sounds equal bilaterally. No accessory muscle use. GASTROINTESTINAL: Abdomen soft, mild left lower quadrant tenderness to direct palpation without guarding or rebound, nondistended. MUSCULOSKELETAL: No cyanosis, or edema. BACK: Nontender without obvious deformity. Left-sided CVA tenderness. Data Data Last Documented VS Vital Signs Date Time Temp Pulse Resp B/P (MAP) Pulse Ox O2 Delivery O2 Flow Rate FiO2 05/28/17 23:06 98.5 112 16 125/74 (91) 100 Room Air Orders Orders Complete Blood Count With Diff (05/28/17 23:56) Basic Metabolic Panel (Bmp) (05/28/17 23:56) Urinalysis - C+S If Indicated (05/28/17 23:56) Ed Urine Pregnancytest Poc (05/28/17 23:56) Ct Abd/Pel W/O Iv Contrast (05/28/17 23:56) Ecg Monitoring (05/28/17 23:56) Iv Access Insert/Monitor (05/28/17 23:56) Ketorolac Inj (Toradol Inj) (05/29/17 00:00) Sodium Chloride 0.9% Flush (Ns Flush) (05/29/17 00:00) Sodium Chlor 0.9% 1000 Ml Inj (Ns 1000 M (05/28/17 23:56) Ondansetron Inj (Zofran Inj) (05/29/17 00:00) Urine Culture (05/29/17 01:05) Labs Laboratory Tests Test 05/29/17 01:05 White Blood Count 8.2 TH/MM3 Red Blood Count 4.30 MIL/MM3 Hemoglobin 10.7 GM/DL Hematocrit 34.0 % Mean Corpuscular Volume 79.1 FL Mean Corpuscular Hemoglobin 24.9 PG Mean Corpuscular Hemoglobin Concent 31.5 % Red Cell Distribution Width 15.5 % Platelet Count 283 TH/MM3 Mean Platelet Volume 7.0 FL Neutrophils (%) (Auto) 53.3 % Lymphocytes (%) (Auto) 37.4 % Monocytes (%) (Auto) 5.4 % Eosinophils (%) (Auto) 2.9 % Basophils (%) (Auto) 1.0 % Neutrophils # (Auto) 4.4 TH/MM3 Lymphocytes # (Auto) 3.1 TH/MM3 Monocytes # (Auto) 0.4 TH/MM3 Eosinophils # (Auto) 0.2 TH/MM3 Basophils # (Auto) 0.1 TH/MM3 CBC Comment DIFF FINAL Differential Comment Urine Color YELLOW Urine Turbidity CLEAR Urine pH 5.5 Urine Specific [place] 1.014 Urine Protein NEG mg/dL Urine Glucose (UA) NEG mg/dL Urine Ketones NEG mg/dL Urine Occult Blood NEG Urine Nitrite NEG Urine Bilirubin NEG Urine Urobilinogen LESS THAN 2.0 MG/DL Urine Leukocyte Esterase LARGE Urine RBC 5 /hpf Urine WBC 13 /hpf Urine Squamous Epithelial Cells 1 /hpf Urine Amorphous Sediment RARE Urine Mucus FEW /lpf Microscopic Urinalysis Comment CULTURE INDICATED Blood Urea Nitrogen 8 MG/DL Creatinine 0.71 MG/DL Random Glucose 88 MG/DL Calcium Level 8.2 MG/DL Sodium Level 140 MEQ/L Potassium Level 3.3 MEQ/L Chloride Level 106 MEQ/L Carbon Dioxide Level 28.9 MEQ/L Anion Gap 5 MEQ/L Estimat Glomerular Filtration Rate 115 ML/MIN MDM Medical Decision Making Medical Screen Exam Complete: Yes Emergency Medical Condition: Yes Medical Record Reviewed: Yes Interpretation(s) Urine [id number] hCG: Negative Urinalysis positive leukocyte Estrace positive white blood cells positive bacteria cultures indicated Last Impressions Abdomen/Pelvis CT 05/28/17 0592 Signed Impressions: Service Date/Time: May 00:20 - CONCLUSION: No acute disease. Warner Rob Jr., MD CBC & BMP Diagram 05/29/17 01:05 Calcium Level 8.2 L Vital Signs Date Time Temp Pulse Resp B/P (MAP) Pulse Ox O2 Delivery O2 Flow Rate FiO2 05/28/17 23:06 98.5 112 16 125/74 (91) 100 Room Air Differential Diagnosis Flank pain, renal colic, pyelonephritis, ectopic Narrative Course IV access obtained specimens collected and sent for resulting patient administered 1 L normal saline and Zofran 4 mg IV and Toradol 30 mg IV point-of- care hCG is negative. CT abdomen and pelvis kidney stone protocol ordered Patient reports that she is clinically improved after receiving IV fluids and Zofran and Toradol no pain similar: CT abdomen and pelvis reveals no acute abnormalities Urinalysis shows white blood cells and leukocyte Estrace culture is indicated Patient identified to have mild hypokalemia of 3.3 patient given oral replacement of potassium and first dose of oral antibiotic patient stable for outpatient management Diagnosis Primary Impression: UTI (urinary tract infection) Qualified Codes: N39.0 - Urinary tract infection, site not specified Additional Impression: Hypokalemia Referrals: Primary Care Physician call for appointment Patient Instructions: General Instructions Additional Instructions: Increase fluid hydration Follow-up with primary care provider Take acetaminophen/Tylenol as needed for fever 100.4F or greater Take ibuprofen/Advil/Motrin 600 mg as often as every 6 hours as needed for fever 100.4F or greater or for pain associated inflammation Complete course of antibiotic as prescribed Med/Other Pt SpecificInfo: Prescription(s) given Scripts Ondansetron Odt (Zofran Odt) 4 Mg Tab 4 MG SL Q6HR Y for Nausea/Vomiting, #10 TAB 0 Refills Prov: Laura Bello MD 05/29/17 Nitrofurantoin Monohydrate Macrocrystals (Macrobid) 100 Mg Cap 100 MG PO BID for Infection for 7 Days, #14 CAP 0 Refills Prov: Laura Bello MD 05/29/17 Disposition: 01 DISCHARGE HOME Condition: Stable Laura Bello MD May 29, 2017 00:00
--- NOTE | 2017-05-29 00:46 | RADRPT ---
EXAM DATE/TIME: 05/29/2017 00:20 [facility] COMPARISON: No previous studies available for comparison. INDICATIONS : Left flank pain. ORAL CONTRAST: No oral contrast ingested. RADIATION DOSE: 13.28 CTDIvol (mGy) MEDICAL HISTORY : None SURGICAL HISTORY : Appendectomy. Hysterectomy. ENCOUNTER: Initial ACUITY: 1 day PAIN SCALE: 8/10 LOCATION: Left TECHNIQUE: Volumetric scanning of the abdomen and pelvis was performed. Using automated exposure control and ad justment of the mA and/or kV according to patient size, radiation dose was kept as low as reasonably achievable to obtain optimal diagnostic quality images. DICOM format image data is available electro nically for review and comparison. FINDINGS: LOWER LUNGS: The visualized lower lungs are clear. LIVER: Homogeneous density without lesion. There is no dilation of the biliary tree. No calcified gallston es. SPLEEN: Normal size without lesion. PANCREAS: Within normal limits. KIDNEYS: Normal in size and shape. There is no mass, stone, or hydronephrosis. ADRENAL GLANDS: Within normal limits. VASCULAR: There is no aortic aneurysm. BOWEL/MESENTERY: The stomach, small bowel, and colon demonstrate no acute abnormality. There is no free intraperitone al air or fluid. ABDOMINAL WALL: Within normal limits. RETROPERITONEUM: There is no lymphadenopathy. BLADDER: No wall thickening or mass. REPRODUCTIVE: Within normal limits. IUD. INGUINAL: There is no lymphadenopathy or hernia. MUSCULOSKELETAL: Within normal limits for patient age. CONCLUSION: No acute disease. Warner Rob Jr., MD on May 29, 2017 at 0:43 Board Certified Radiologist. This report was verified electronically.
[2017-05-29 02:00] LABS: BLOOD, URINE NEG (NEG); COMMENT (UR) CULTURE INDICATED; CULTURE IF INDICATED CULTURE INDICATED; GLUCOSE,URINE NEG (NEG); KETONE, URINE NEG (NEG); MUCUS URINE FEW /lpf (OCC); NITRITE,URINE NEG (NEG); PH, URINE 5.5 (5.0-8.5); SQUAMOUS EPITHELIAL CELL URINE 1 /hpf (0-5); URINE COLOR YELLOW (YELLW/STRAW)
[2017-05-29 02:09] LABS: AUTOMATED NEUTROPHIL # 4.4 TH/MM3 (1.8-7.7); BASOPHIL # 0.1 TH/MM3 (0-0.2); EOSINOPHIL # 0.2 TH/MM3 (0-0.4); EOSINOPHIL % 2.9 % (0.0-4.0); HEMO FLAGS DIFF FINAL; LYMPH % 37.4 % (9.0-44.0); LYMPHOCYTE # 3.1 TH/MM3 (1.0-4.8); MEAN CELL VOLUME 79.1 FL (80.0-100.0); MEAN CORPUSCULAR HEMOGLOBIN 24.9 PG (27.0-34.0); MEAN CORPUSCULAR HGB CONC 31.5 % (32.0-36.0); MONO % 5.4 % (0.0-8.0); NEUT % 53.3 % (16.0-70.0); PLATELET COUNT 283 TH/MM3 (150-450); RED CELL DISTRIBUTION WIDTH 15.5 % (11.6-17.2); WHITE BLOOD COUNT 8.2 TH/MM3 (4.0-11.0)
[2017-05-29 02:17] LABS: BICARBONATE 28.9 MEQ/L (21.0-32.0); POTASSIUM 3.3 MEQ/L (3.5-5.1)
[2017-05-29] MEDS ORDERED: ZOFR4TAB3 SL (02:48)
[2017-05-29] MEDS ORDERED: MACR100C2 PO (02:48)
[2017-05-29] MEDS ORDERED: POTASSIUM CHLORIDE 20 MEQ CONTROLLED RELEASE TAB PO ONE (03:00)
[2017-05-29] MEDS ORDERED: NITROFURANTOIN MONOHYD MACROCR 100 MG CAP PO ONE (03:00)
== END 2017-05-29 03:32 | disposition home or self-care (01) ==
LOC: NEPC 23:05
DX: N39.0 Urinary tract infection, site not specified (principal); E87.6 Hypokalemia; B96.89 Other specified bacterial agents as the cause of diseases classified elsewhere
CPT/HCPCS: 74176; 80048; 81001; 84703; 85025; 87086; 96374; 96375; 99285; J1885; J2405; J7030

== ENCOUNTER 2017-05-31 11:50 | Emergency (ER) | payer MEDICAID ==
[~2017-05-31] VITALS: Ht 167.6 cm; Wt 67.0 kg
[~2017-05-31 11:50] MED LIST changes: -CEPH-460 PO; +MACR100C2 PO; +ZOFR4TAB3 SL
[2017-05-31 11:51] VITALS: BP 134/87; PULSE 84; RESP 24; TEMP 98.1; O2SAT 100
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
[2017-05-31] MEDS ORDERED: IBUP800T23 PO (13:54)
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
== END 2017-05-31 14:03 | disposition home or self-care (01) ==
LOC: NEPD 11:50
DX: M79.672 Pain in left foot (principal); D64.9 Anemia, unspecified; W22.8XXA Striking against or struck by other objects, initial encounter; Y93.89 Activity, other specified; Y92.512 Supermarket, store or market as the place of occurrence of the external cause
CPT/HCPCS: 73610; 73630; 99283

== ENCOUNTER 2017-06-09 07:24 | Emergency (ER) | payer MEDICAID ==
[~2017-06-09] VITALS: Ht 168.9 cm; Wt 66.0 kg
[~2017-06-09 07:24] MED LIST changes: +IBUP800T23 PO; -MACR100C2 PO; -ZOFR4TAB3 SL
[2017-06-09 07:26] VITALS: BP 130/86; PULSE 82; RESP 12; TEMP 98.2; O2SAT 99
[2017-06-09 07:41] VITALS: BP 131/87; PULSE 79; RESP 14; TEMP 98.1; O2SAT 100
[2017-06-09] MEDS ORDERED: KETOROLAC TROMETHAMINE 60 MG/2 ML (IM) VIAL IM ONE (08:00)
--- NOTE | 2017-06-09 08:02 | PD ---
HPI Chief Complaint: Numbness/Tingling Time Seen by Provider: 07:50 Travel History International Travel<30 days: No Contact w/Intl Traveler<30days: No Traveled to known affect area: No History of Present Illness HPI 32yo F with no significant PMH presents to the ED with c/o right calf pain for 3 days. States it is associated with tingling and pain is worst with movement. Sometimes with cramping. Denies any fever, trauma, IVDA, chest pain, sob, n/v , abdominal pain, focal weakness. Did not take anything for pain at home. PFSH Past Medical History Anemia: Yes Arthritis: No Asthma: No Autoimmune Disease: No Blood Disorders: No Anxiety: Yes Depression: Yes Heart Rhythm Problems: No Cancer: No Cardiovascular Problems: No High Cholesterol: No Chemotherapy: No Chest Pain: No Congestive Heart Failure: No COPD: No Diabetes: No Diminished Hearing: No Endocrine: No GERD: No Glaucoma: No Genitourinary: No Hepatitis: No Hiatal Hernia: No Hypertension: No Kidney Stones: No Musculoskeletal: No Neurologic: No Respiratory: No Immunizations Current: Yes Myocardial Infarction: No Radiation Therapy: No Renal Failure: No Sickle Cell Disease: No Sleep Apnea: No Thyroid Disease: Yes (PT STATES " THINK HYPO") Ulcer: No ?: Not LMP: 05/31/17 : 3 Para: 1 Miscarriage: 0 : 2 Ovarian Cysts: Yes Past Surgical History AICD: No Appendectomy: Yes Gynecologic Surgery: Yes (RIGHT OOPHRECTOMY) Hysterectomy: Yes Pacemaker: No Tonsillectomy: Yes Other Surgery: No Social History Alcohol Use: No Tobacco Use: Yes (1-3 cigarettes per day) Substance Use: No Allergies-Medications (Allergen,Severity, Reaction): Coded Allergies: citric acid (Verified Allergy, Severe, TONGUE IRRITATION, 06/09/17) penicillin G (Verified Allergy, Severe, Hives, 06/09/17) morphine (Verified Allergy, Mild, ITCHES, 06/09/17) meperidine (Verified Adverse Reaction, Mild, STS DOES NOT WORK, 06/09/17) Reported Meds & Prescriptions Reported Meds & Active Scripts Active Ibuprofen 800 Mg Tab 800 Mg PO Q6HR PRN Review of Systems Except as stated in HPI: all other systems reviewed are Neg Physical Exam Narrative GENERAL: 32yo F not in distress. SKIN: Focused skin assessment warm/dry. HEAD: Atraumatic. Normocephalic. EYES: Pupils equal and round. No scleral icterus. No injection or drainage. ENT: No nasal bleeding or discharge. Mucous membranes pink and moist. NECK: Trachea midline. No JVD. CARDIOVASCULAR: Regular rate and rhythm. No murmur appreciated. RESPIRATORY: No accessory muscle use. Clear to auscultation. Breath sounds equal bilaterally. GASTROINTESTINAL: Abdomen soft, non-tender, nondistended. No rebound tenderness or guarding. MUSCULOSKELETAL: RLE: +TTP right calf. No edema. No erythema. No open wound. FROM in right knee, hip and ankle. Distal pulses intact. Muscle strength intact. NEUROLOGICAL: Awake and alert. No obvious cranial nerve deficits. Motor grossly within normal limits. Normal speech. PSYCHIATRIC: Appropriate mood and affect; insight and judgment normal. Data Data Last Documented VS Vital Signs Date Time Temp Pulse Resp B/P (MAP) Pulse Ox O2 Delivery O2 Flow Rate FiO2 06/09/17 07:41 98.1 79 14 131/87 (102) 100 Room Air Orders Orders Us Leg Venous Doppler (06/09/17 ) Ketorolac Inj (Toradol Inj) (06/09/17 08:00) MDM Medical Decision Making Medical Screen Exam Complete: Yes Emergency Medical Condition: Yes Differential Diagnosis Musculoskeletal pain vs. Robb Cyst vs. DVT Narrative Course 32yo F with right calf pain for 3 days. No trauma or fever. Nothing remarkable on exam except calf tenderness on palpation. US showed no DVT. Pt given toradol and reevaluated at bedside. Said pain has improved. Pt is sleeping comfortably with normal vital signs. Return precautions given. Diagnosis Primary Impression: Right calf pain Patient Instructions: General Instructions Departure Forms: Tests/Procedures Additional Instructions: Please follow up with your primary care physician in 3-7 days. Return to the ED if symptoms worsen. Med/Other Pt SpecificInfo: Prescription(s) given Scripts Acetaminophen (Tylenol) 325 Mg Tab 650 MG PO Q6H Y for PAIN SCALE 1 TO 4, #20 TAB 0 Refills Prov: Mily Shoemaker DO 06/09/17 Disposition: 01 DISCHARGE HOME Condition: Stable Mily Shoemaker DO Jun 09, 2017 08:02
--- NOTE | 2017-06-09 08:44 | RADRPT ---
EXAM DATE/TIME: 06/09/2017 08:21 [facility] COMPARISON: No previous studies available for comparison. INDICATIONS : Right leg pain. MEDICAL HISTORY : Hypothyroidism. Anemia. Ovarian cysts. Depression. Anxiety. Tobacco use. SURGICAL HISTORY : Tonsillectomy. Appendectomy. Hysterectomy. Right oophorectomy. ENCOUNTER: Initial ACUITY: 3 days PAIN SCORE: 7/10 LOCATION: Right leg. TECHNIQUE: Venous ultrasound of the leg was performed from the inguinal ligament to the proximal calf. Real-kathy e, color Doppler and spectral tracing, compression and augmentation techniques were used. FINDINGS: There is normal compressibility of the deep venous system from the inguinal region to the proximal ca lf. No echogenic clot is seen in the lumen of the common femoral, femoral, popliteal, and posterior tibial veins. There is a normal response of the venous system to proximal and distal augmentation an d respiration. CONCLUSION: 1. No evidence of deep venous thrombosis. Leno Phelan MD on June 09, 2017 at 8:43 Board Certified Radiologist. This report was verified electronically.
[2017-06-09] MEDS ORDERED: TYLE325T PO (10:25)
== END 2017-06-09 11:10 | disposition home or self-care (01) ==
LOC: NEPC 07:24
DX: M79.661 Pain in right lower leg (principal); R20.2 Paresthesia of skin; D64.9 Anemia, unspecified; F41.9 Anxiety disorder, unspecified; F32.9 Major depressive disorder, single episode, unspecified; F17.210 Nicotine dependence, cigarettes, uncomplicated; Z88.0 Allergy status to penicillin; Z88.5 Allergy status to narcotic agent; Z88.8 Allergy status to other drugs, medicaments and biological substances
CPT/HCPCS: 93971; 96372; 99285; J1885

== ENCOUNTER 2017-08-12 11:53 | Emergency (ER) | payer MEDICAID ==
[~2017-08-12] VITALS: Ht 167.6 cm; Wt 62.8 kg
[~2017-08-12 11:53] MED LIST changes: +IBUP1TAB7 PO; -IBUP800T23 PO; +TYLE325T PO
[2017-08-12 11:59] VITALS: BP 112/75; PULSE 86; RESP 18; TEMP 98.4; O2SAT 100
[2017-08-12] MEDS ORDERED: TRAM50TA PO (12:37)
[2017-08-12] MEDS ORDERED: CLIN300C5 PO (12:57)
--- NOTE | 2017-08-12 13:00 | PD ---
HPI Chief Complaint: Oral / Dental Pain or Problem Time Seen by Provider: 12:51 Travel History International Travel<30 days: No Contact w/Intl Traveler<30days: No Traveled to known affect area: No History of Present Illness HPI 32-year-old female here with left upper dental pain and some facial swelling, 1 day. Patient reports history of dental abscesses in the past for similar symptoms. She denies fever or chills. She reports pain is constant and throbbing. Symptom severity is moderate. No alleviating factors. PFSH Past Medical History Anemia: Yes Arthritis: No Asthma: No Autoimmune Disease: No Blood Disorders: No Anxiety: Yes Depression: Yes Heart Rhythm Problems: No Cancer: No Cardiovascular Problems: No High Cholesterol: No Chemotherapy: No Chest Pain: No Congestive Heart Failure: No COPD: No Diabetes: No Diminished Hearing: No Endocrine: No GERD: No Glaucoma: No Genitourinary: No Hepatitis: No Hiatal Hernia: No Hypertension: No Kidney Stones: No Musculoskeletal: No Neurologic: No Respiratory: No Immunizations Current: Yes Myocardial Infarction: No Radiation Therapy: No Renal Failure: No Sickle Cell Disease: No Sleep Apnea: No Thyroid Disease: Yes (PT STATES " THINK HYPO") Ulcer: No Tetanus Vaccination: > 5 Years Influenza Vaccination: No ?: Not LMP: mirena : 3 Para: 1 Miscarriage: 0 : 2 Ovarian Cysts: Yes Past Surgical History AICD: No Appendectomy: Yes Gynecologic Surgery: Yes (RIGHT OOPHRECTOMY) Hysterectomy: Yes Pacemaker: No Tonsillectomy: Yes Other Surgery: No Social History Alcohol Use: No Tobacco Use: Yes (1/2 pk) Substance Use: No Allergies-Medications (Allergen,Severity, Reaction): Coded Allergies: citric acid (Verified Allergy, Severe, TONGUE IRRITATION, 08/12/17) penicillin G (Verified Allergy, Severe, Hives, 08/12/17) morphine (Verified Allergy, Mild, ITCHES, 08/12/17) meperidine (Verified Adverse Reaction, Mild, STS DOES NOT WORK, 08/12/17) Reported Meds & Prescriptions Reported Meds & Active Scripts Active Reported Tramadol (Tramadol HCl) 50 Mg Tab 50 Mg PO Q8H PRN Review of Systems Except as stated in HPI: all other systems reviewed are Neg General / Constitutional: No: Fever Physical Exam Narrative GENERAL: Alert female. Well-appearing. SKIN: Warm and dry. Mild left-sided facial swelling HEAD: Normocephalic. EYES: No scleral icterus. No injection or drainage. Mouth: Widespread dental cane the left upper region with gum erythema and tenderness. NECK: Supple, trachea midline. No JVD or lymphadenopathy. CARDIOVASCULAR: Regular rate and rhythm without murmurs, gallops, or rubs. RESPIRATORY: Breath sounds equal bilaterally. No accessory muscle use. Data Data Last Documented VS Vital Signs Date Time Temp Pulse Resp B/P (MAP) Pulse Ox O2 Delivery O2 Flow Rate FiO2 08/12/17 11:59 98.4 86 18 112/75 (87) 100 MDM Medical Decision Making Medical Screen Exam Complete: Yes Emergency Medical Condition: Yes Differential Diagnosis Dental abscess, dental caries, periodontal disease Narrative Course 32-year-old female here with left upper dental pain 1 day. On exam she has widespread decay she has gum erythema and swelling. Mild left sided facial swelling. Patient be treated for dental abscess. Diagnosis Primary Impression: Dental abscess Referrals: Dentist Additional Instructions: Take [id number] Tylenol or ibuprofen as needed for pain. Follow-up with her dentist Scripts Clindamycin (Clindamycin) 300 Mg Cap 300 MG PO TID for Infection for 7 Days, CAP 0 Refills Prov: Britney Reeder 08/12/17 Disposition: 01 DISCHARGE HOME Condition: Stable Britney Reeder Aug 12, 2017 13:00
== END 2017-08-12 13:15 | disposition home or self-care (01) ==
LOC: PHEFT 11:53
DX: K04.7 Periapical abscess without sinus (principal); F17.200 Nicotine dependence, unspecified, uncomplicated
CPT/HCPCS: 99283

== ENCOUNTER 2017-10-15 00:09 | Emergency (ER) | payer MEDICAID ==
[~2017-10-15] VITALS: Ht 167.6 cm; Wt 60.0 kg
[~2017-10-15 00:09] MED LIST changes: +CLIN300C5 PO; -IBUP1TAB7 PO; +TRAM50TA PO; -TYLE325T PO
[2017-10-15 00:11] VITALS: BP 127/83; PULSE 70; RESP 16; TEMP 98.6; O2SAT 100
== END 2017-10-15 00:25 | disposition left against medical advice (07) ==
LOC: NED 00:09
DX: Z53.21 Procedure and treatment not carried out due to patient leaving prior to being seen by health care provider (principal)
CPT/HCPCS: 99281

== ENCOUNTER 2017-10-30 00:52 | Emergency (ER) | payer MEDICAID ==
[2017-10-30 00:55] VITALS: BP 131/85; PULSE 102; RESP 16; TEMP 98.4; O2SAT 100
[2017-10-30] MEDS ORDERED: MUPI2OIN TOPICAL (09:22)
[2017-10-30] MEDS ORDERED: CEPH-460 PO (09:22)
== END 2017-10-30 01:12 | disposition left against medical advice (07) ==
LOC: NED 00:52
DX: Z03.89 Encounter for observation for other suspected diseases and conditions ruled out (principal)
CPT/HCPCS: 99281

== ENCOUNTER 2017-10-30 08:30 | Emergency (ER) | payer MEDICAID ==
[~2017-10-30] VITALS: Ht 167.6 cm; Wt 60.0 kg
[2017-10-30 08:32] VITALS: BP 134/79; PULSE 112; RESP 14; TEMP 98.8; O2SAT 96
[2017-10-30] MEDS ORDERED: CEPH-460 PO (09:22)
[2017-10-30] MEDS ORDERED: MUPI2OIN TOPICAL (09:22)
--- NOTE | 2017-10-30 09:24 | PD ---
HPI Chief Complaint: Skin Problem Time Seen by Provider: 09:13 Travel History International Travel<30 days: No Contact w/Intl Traveler<30days: No Traveled to known affect area: No History of Present Illness HPI 32-year-old female presents to the emergency department for evaluation of a skin rash that she has had for 9 months. Patient states she has seen a pet feeder as well as her primary care physician as well as another emergency department. She states she has been treated for scabies twice, has cleaned her entire house. She states the pet feeder told her it was an allergic reaction. Patient denies any worsening conditions, but states that she is sick of having the rash. She states she has been picking and itching at it. She is convinced that she has worms living in her skin. Patient denies any out of country travel. She states that she will see a black pain, out of her wound answer hopping around. No exacerbating or alleviating factors. Mild severity. PFSH Past Medical History Anemia: Yes Arthritis: No Asthma: No Autoimmune Disease: No Blood Disorders: No Anxiety: Yes Depression: Yes Heart Rhythm Problems: No Cancer: No Cardiovascular Problems: No High Cholesterol: No Chemotherapy: No Chest Pain: No Congestive Heart Failure: No COPD: No Diabetes: No Diminished Hearing: No Endocrine: No GERD: No Glaucoma: No Genitourinary: No Hepatitis: No Hiatal Hernia: No Hypertension: No Kidney Stones: No Musculoskeletal: No Neurologic: No Respiratory: No Immunizations Current: Yes Myocardial Infarction: No Radiation Therapy: No Renal Failure: No Sickle Cell Disease: No Sleep Apnea: No Thyroid Disease: Yes (PT STATES " THINK HYPO") Ulcer: No ?: Not LMP: 10/05/17 : 3 Para: 1 Miscarriage: 0 : 2 Ovarian Cysts: Yes Past Surgical History AICD: No Appendectomy: Yes Gynecologic Surgery: Yes (RIGHT OOPHRECTOMY) Hysterectomy: Yes Pacemaker: No Tonsillectomy: Yes Other Surgery: No Social History Alcohol Use: No Tobacco Use: Yes (/2 pk) Substance Use: No Allergies-Medications (Allergen,Severity, Reaction): Coded Allergies: citric acid (Verified Allergy, Severe, TONGUE IRRITATION, 08/12/17) penicillin G (Verified Allergy, Severe, Hives, 08/12/17) morphine (Verified Allergy, Mild, ITCHES, 08/12/17) meperidine (Verified Adverse Reaction, Mild, STS DOES NOT WORK, 08/12/17) Reported Meds & Prescriptions Reported Meds & Active Scripts Active Clindamycin (Clindamycin HCl) 300 Mg Cap 300 Mg PO TID 7 Days Reported Tramadol (Tramadol HCl) 50 Mg Tab 50 Mg PO Q8H PRN Review of Systems Except as stated in HPI: all other systems reviewed are Neg Physical Exam Narrative GENERAL: Well-nourished, well-developed female patient, ambulatory. Afebrile. SKIN: Focused skin assessment warm/dry. Patient has small abrasion to the left ankle, left side, right arm. She does have some mild erythema to the abrasion to the left ankle. HEAD: Normocephalic. Atraumatic. EYES: No scleral icterus. No injection or drainage. NECK: Supple, trachea midline. No JVD or lymphadenopathy. CARDIOVASCULAR: Regular rate and rhythm without murmurs, gallops, or rubs. RESPIRATORY: Breath sounds equal bilaterally. No accessory muscle use. Lungs sounds are clear to auscultation. MUSCULOSKELETAL: No cyanosis, or edema. Data Data Last Documented VS Vital Signs Date Time Temp Pulse Resp B/P (MAP) Pulse Ox O2 Delivery O2 Flow Rate FiO2 10/30/17 08:32 98.8 112 14 134/79 (97) 96 MDM Medical Decision Making Medical Screen Exam Complete: Yes Emergency Medical Condition: Yes Medical Record Reviewed: Yes Differential Diagnosis Abrasions from picking versus scabies versus allergic reaction Narrative Course 32-year-old female presents to the emergency department for evaluation of rash that she has had for 9 months and has been to multiple providers for the same. On exam, she has abrasions that appear to be from picking at her skin. She does have some mild erythema surrounding the abrasion to the ankle. I will prescribe her mupirocin ointment and Keflex. She is encouraged to follow back up with her pet feeder for reevaluation. The patient was discharged in stable condition with instructions, including return instructions and follow up instructions. Diagnosis Primary Impression: Abrasions of multiple sites Referrals: Primary Care Physician call for appointment Patient Instructions: Abrasion (ED), General Instructions Additional Instructions: Clean abrasions twice daily with soap and water and apply prescribed antibiotic ointment. Do not pick at skin. Take antibiotic as directed until gone. Follow back up with your pet feeder. Return to the emergency department for any acute worsening of symptoms. Med/Other Pt SpecificInfo: Prescription(s) given Scripts Mupirocin Topical (Mupirocin Topical) 2 % Oint 1 APPLIC TOPICAL BID for Mgmt Bacterial Infection, #1 TUBE 0 Refills Prov: Fabiola Jolly 10/30/17 Cephalexin (Keflex) 500 Mg Cap 500 MG PO Q6H for Infection for 7 Days, #28 CAP 0 Refills Prov: Fabiola Jolly 10/30/17 Disposition: 01 DISCHARGE HOME Condition: Stable Fabiola Jolly Oct 30, 2017 09:24
== END 2017-10-30 09:38 | disposition home or self-care (01) ==
LOC: NEPK 08:30
DX: T14.8XXA Other injury of unspecified body region, initial encounter (principal); X58.XXXA Exposure to other specified factors, initial encounter
CPT/HCPCS: 99283

== ENCOUNTER 2017-11-01 05:38 | Emergency (ER) | payer MEDICAID ==
[~2017-11-01 05:38] MED LIST changes: +CEPH-460 PO; +MUPI2OIN TOPICAL
[2017-11-01 05:40] VITALS: BP 128/92; PULSE 91; RESP 16; TEMP 98.9; O2SAT 98
== END 2017-11-01 05:55 | disposition left against medical advice (07) ==
LOC: NEPD 05:38
DX: Z03.89 Encounter for observation for other suspected diseases and conditions ruled out (principal)
CPT/HCPCS: 99281

== ENCOUNTER 2018-03-02 06:27 | Emergency (ER) | payer MEDICAID ==
[~2018-03-02] VITALS: Ht 167.6 cm; Wt 61.5 kg
[2018-03-02 06:28] VITALS: BP 134/77; PULSE 104; RESP 18; TEMP 98; O2SAT 97
--- NOTE | 2018-03-02 06:59 | PD ---
HPI Chief Complaint: Oral / Dental Pain or Problem Time Seen by Provider: 06:51 Travel History International Travel<30 days: No Contact w/Intl Traveler<30days: No Traveled to known affect area: No History of Present Illness HPI The patient is a 32 year old female who presents to the [facility] emergency department with a history of noticing an area of swelling along her right upper gumline yesterday at 5 PM. She reports that she has dental pain associated with this. She reports having dental decay and a history of abscesses previously. The patient reports that she is followed by [facility]. She has not seen them recently. The patient reports that she used Orajel without any improvement. She reports that she last took Tylenol at 6 PM , and last took an ibuprofen at 3 PM. She denies having any known fevers or chills. She denies having any known drainage in her mouth taste in her mouth. On review of systems otherwise, the patient denies having any cough, congestion , neck pain, chest pain, shortness of breath, abdominal pain, vomiting, diarrhea , urinary symptoms, or neurologic symptoms. LMP: Status post hysterectomy. PFSH Past Medical History Narrative Medical The patient's past medical history is reportedly none. Anemia: Yes Arthritis: No Asthma: No Autoimmune Disease: No Blood Disorders: No Anxiety: Yes Depression: Yes Heart Rhythm Problems: No Cancer: No Cardiovascular Problems: No High Cholesterol: No Chemotherapy: No Chest Pain: No Congestive Heart Failure: No COPD: No Diabetes: No Diminished Hearing: No Endocrine: No Gastrointestinal Disorders: No GERD: No Glaucoma: No Genitourinary: No Hepatitis: No Hiatal Hernia: No Hypertension: No Kidney Stones: No Musculoskeletal: No Neurologic: No Reproductive: No Respiratory: No Immunizations Current: Yes Myocardial Infarction: No Radiation Therapy: No Renal Failure: No Sickle Cell Disease: No Sleep Apnea: No Thyroid Disease: Yes (PT STATES " THINK HYPO") Ulcer: No Tetanus Vaccination: > 5 Years Influenza Vaccination: No ?: Unknown : 2 Para: 1 Miscarriage: 0 : 1 Ovarian Cysts: Yes Past Surgical History Narrative Surgical The patient's past surgical history is significant for hysterectomy, tonsillectomy AICD: No Appendectomy: Yes Gynecologic Surgery: Yes (RIGHT OOPHRECTOMY) Hysterectomy: Yes Insulin Pump: No Pacemaker: No Tonsillectomy: Yes Other Surgery: No Social History Alcohol Use: No Tobacco Use: Yes (1 pack per day) Substance Use: No Allergies-Medications (Allergen,Severity, Reaction): Coded Allergies: citric acid (Verified Allergy, Severe, TONGUE IRRITATION, 03/02/18) penicillin G (Verified Allergy, Severe, Hives, 03/02/18) morphine (Verified Allergy, Mild, ITCHES, 03/02/18) meperidine (Verified Adverse Reaction, Mild, STS DOES NOT WORK, 03/02/18) Reported Meds & Prescriptions Reported Meds & Active Scripts Active No Active Prescriptions or Reported Medications Review of Systems Except as stated in HPI: all other systems reviewed are Neg General / Constitutional: No: Fever Eyes: No: Visual changes HENT: Positive: Gingival Bleeding, Dental Difficulties, No: Headaches, Congestion Cardiovascular: No: Chest Pain or Discomfort Respiratory: No: Cough, Shortness of Breath Gastrointestinal: No: Abdominal Pain Genitourinary: No: Dysuria Musculoskeletal: No: Pain Skin: No Rash Neurologic: No: Weakness, Focal Abnormalities, Change in Mentation, Slurred Speech, Sensory Disturbance Psychiatric: No: Depression Endocrine: No: Polydipsia Hematologic/Lymphatic: No: Easy Bruising Physical Exam Narrative General: The patient is a well-developed well-nourished female in no acute distress. Head and Neck exam: Head is normocephalic atraumatic. Eyes: EOMI, pupils are equal round and reactive to light. Nose: Midline septum with pink mucous membranes Mouth: Multiple missing teeth and poor dentition throughout her mouth. The patient is noted in the area of interest, the right maxilla to have gingival erythema, mild edema. No didier abscess formation and no significant swelling of her mouth. The patient has no swelling under the tongue. The patient has moist mucus membranes. Posterior oropharynx is not erythematous. No tonsillar hypertrophy. Uvula midline. Airway patent. Neck: No palpable lymphadenopathy. No nuchal rigidity. No thyromegaly. Cardiovascular: Regular rate and rhythm without murmurs, gallops, or rubs. No pulse deficit to the extremities on simultaneous auscultation and palpation of her radial artery. Lungs: Clear to auscultation bilaterally. No wheezes, rhonchi, or rales. Abdomen: Soft, without tenderness to palpation in all 4 quadrants of the abdomen. No guarding, rebound, or rigidity. Normal bowel sounds are audible. No tenderness on palpation of McBurney's point. Extremities: No clubbing, cyanosis, or edema. 2+ pulses in all 4 extremities. Back: No costovertebral angle tenderness to palpation. Neurologic Exam: Grossly nonfocal. Skin Exam: No rash noted. Intact skin that is warm and dry. Data Data Last Documented VS Vital Signs Date Time Temp Pulse Resp B/P (MAP) Pulse Ox O2 Delivery O2 Flow Rate FiO2 03/02/18 06:44 (96) 03/02/18 06:28 98.0 104 18 97 Orders Orders Acetaminophen (Tylenol) (03/02/18 07:00) Clindamycin (Cleocin) (03/02/18 07:00) [facility] Medical Decision Making Medical Screen Exam Complete: Yes Emergency Medical Condition: Yes Medical Record Reviewed: Yes Differential Diagnosis Dentalgia, versus gingivitis, versus early abscess formation Narrative Course During the course of the patient's emergency department visit, the patient's history, examination, and differential diagnosis were reviewed with the patient. The patient was placed on a teletypesetter monitor with oximetry and frequent blood pressure monitoring. The patient was initially provided Tylenol for pain. Given the patient's penicillin allergy, the patient will be treated with clindamycin. She is given her first dose here of 300 mg. The patient is encouraged to follow-up with a dentist as soon as possible. The patient is resting comfortably and feels better, is alert and in no distress. The patient's results and examination findings were discussed with the patient. The repeat examination is unremarkable and benign. The history, exam, diagnostic testing, and current condition do not suggest any significant pathology to warrant further testing, continued ED treatment, admission, or surgical evaluation at this point. The vital signs have been stable. The patient does not have uncontrollable pain, intractable vomiting, or other significant symptoms. The patient's condition is stable and appropriate for discharge. The patient will pursue further outpatient evaluation with a primary care physician or other designated or consulting physician as indicated in the discharge instructions. The patient is instructed to report back to the emergency department immediately for reexamination in the mean time if she develops any new or worsening signs or symptoms. The patient expressed understanding and was agreeable with this plan. Diagnosis Primary Impression: Gingivitis Additional Impressions: Dentalgia Dental decay Referrals: Dentist 2 days Patient Instructions: Dental Caries (ED), General Instructions, Gingivitis (ED) Med/Other Pt SpecificInfo: Prescription(s) given Scripts Clindamycin (Clindamycin) 300 Mg Cap 300 MG PO Q8HR for Infection for 10 Days, CAP 0 Refills Prov: Beth Duff MD 03/02/18 Disposition: 01 DISCHARGE HOME Condition: Stable Beth Duff MD Mar 02, 2018 06:59
[2018-03-02] MEDS ORDERED: CLINDAMYCIN 150 MG CAP PO ONE (07:00)
[2018-03-02] MEDS ORDERED: ACETAMINOPHEN 325 MG TAB PO ONE (07:00)
[2018-03-02] MEDS ORDERED: CLIN300C5 PO (07:10)
== END 2018-03-02 07:45 | disposition home or self-care (01) ==
LOC: NEPC 06:27
DX: K05.10 Chronic gingivitis, plaque induced (principal); K02.9 Dental caries, unspecified; F17.200 Nicotine dependence, unspecified, uncomplicated
CPT/HCPCS: 99283